=== PATIENT | female | born 1955 | race African-American/Black ===

== ENCOUNTER → 2020-04-24 | Outpatient (CLI) | payer MEDICARE, MEDICAID | END | disposition home or self-care (01) | LOC: MRI 13:41 | PROVIDERS: ATTEND Neurological Surgery | DX: M51.37 Other intervertebral disc degeneration, lumbosacral region (principal); M51.26 Other intervertebral disc displacement, lumbar region; M48.07 Spinal stenosis, lumbosacral region; M48.02 Spinal stenosis, cervical region | CPT/HCPCS: 72141; 72148 ==

== ENCOUNTER → 2020-11-19 | Outpatient (CLI) | payer MEDICARE | END | disposition home or self-care (01) | LOC: MRI 08:23 | PROVIDERS: ATTEND Neurological Surgery | DX: M47.816 Spondylosis without myelopathy or radiculopathy, lumbar region (principal); M48.061 Spinal stenosis, lumbar region without neurogenic claudication | CPT/HCPCS: 72148 ==

== ENCOUNTER → 2022-03-25 | Outpatient (CLI) | payer MEDICARE | END | disposition home or self-care (01) | LOC: US 09:13 | PROVIDERS: ATTEND Internal Medicine Nephrology | DX: N18.30 Chronic kidney disease, stage 3 unspecified (principal) | CPT/HCPCS: 76770 ==

== ENCOUNTER 2025-08-23 15:40 | Inpatient (IN) | payer MEDICARE, MEDICAID ==
[~2025-08-23] VITALS: Ht 157.5 cm; Wt 74.6 kg
[2025-08-23 15:45] VITALS: O2SAT 97
[2025-08-23 18:06] LABS: INR 1.2
[2025-08-23 18:25] LABS: CREATININE 1.6 mg/dL (0.6-1.0); UREA NITROGEN BLOOD 10 mg/dL (9-23)
[2025-08-23 18:27] LABS: ASPARTATE AMINOTRANSFERASE 18 IU/L (<34); BILIRUBIN DIRECT 0.1 mg/dL (<=3.0)
[2025-08-23 18:28] LABS: BILIRUBIN TOTAL 0.4 mg/dL (0.1-1.0); PROTEIN TOTAL 6.8 g/dL (6.0-8.3)
[2025-08-23 18:35] LABS: TROPONIN I HIGH SENSITIVITY 158 ng/L (3.0-34)
[2025-08-23 18:59] LABS: BASOPHILS % 0.8 % (0.0-2.0); EOSINOPHILS % 2.4 % (0.0-5.0); HEMATOCRIT. 34.5 % (36.0-48.0); HEMOGLOBIN. 11.7 g/dL (12.0-16.0); LYMPHOCYTES % 26.1 % (20.0-50.0); MEAN PLATELET VOLUME 9.6 fl (7.4-10.4); MONOCYTES % 8.2 % (2.0-8.0); NEUTROPHILS % 62.5 % (40.0-76.0); PLATELET 206 x1000/uL (130-400); RED BLOOD CELL COUNT 3.77 mill/uL (4.2-5.4); RED CELL DISTRIBUTION WIDTH 13.3 % (11.6-14.6)
[2025-08-23] MEDS: ASPIRIN 325MG EC TABLET PO ONE (19:19)
[2025-08-23] MEDS: CLOPIDOGREL 75MG TABLET PO ONE (19:19)
[2025-08-23] MEDS: LACTATED RINGERS 1,000 ML IV ONE (19:26)
[2025-08-23] MEDS ORDERED: GUAIFENESIN 200MG/10ML SUGAR FREE UDC PO PRN (20:15)
[2025-08-23] MEDS ORDERED: MAGNESIUM/ALUMINUM HYDROXIDE/SIMETHICONE 30ML UDC PO PRN (20:15)
[2025-08-23] MEDS ORDERED: DOCUSATE SODIUM 100MG CAPSULE PO PRN (20:15)
[2025-08-23] MEDS ORDERED: ACETAMINOPHEN 325MG TABLET PO PRN ×2 (20:15)
[2025-08-23] MEDS ORDERED: ONDANSETRON HCL 4MG/2ML INJ IV PRN (20:15)
[2025-08-23] MEDS ORDERED: IPRATROPIUM/ALBUTEROL 0.5-3(2.5)MG/3ML NEB HHN PRN (20:15)
[2025-08-23] MEDS ORDERED: DEXTROSE 50% WATER 50ML SYRINGE IV PRN (20:15)
[2025-08-23] MEDS ORDERED: CLONIDINE 0.1MG TABLET PO PRN (20:15)
[2025-08-23] MEDS ORDERED: RANOLAZINE 500 MG TAB.SR.12H PO SCH (21:00)
[2025-08-23] MEDS: MAGNESIUM 2 G PREMIX 50 ML IV SCH (21:00)
[2025-08-23] MEDS: BLOOD SUGAR DIAGNOSTIC STRIP TEST SCH (21:00)
[2025-08-23 23:10] VITALS: BP 141/85; PULSE 60; RESP 20; TEMP 36.1956; TEMP 36.2; O2SAT 100
[2025-08-23] MEDS: INSULIN LISPRO 100 UNITS/ML SUBCUT SCH (23:10)
[2025-08-24] MEDS: APIXABAN 5 MG TABLET PO SCH (00:28)
[2025-08-24] MEDS: MAGNESIUM 2 G PREMIX 50 ML IV NR (00:28)
[2025-08-24] MEDS: ATORVASTATIN CALCIUM 40MG TABLET PO SCH (00:28)
[2025-08-24] MEDS ORDERED: LOSA25TA26 PO (01:31)
[2025-08-24] MEDS ORDERED: ATOR-2 PO (01:31)
[2025-08-24] MEDS ORDERED: DILT240C96 PO (01:31)
[2025-08-24] MEDS ORDERED: PANT40TA51 PO (01:31)
[2025-08-24] MEDS ORDERED: APIX5TAB PO (01:31)
[2025-08-24] MEDS ORDERED: METF-414 PO (01:31)
[2025-08-24] MEDS ORDERED: METO-539 PO (01:31)
[2025-08-24] MEDS ORDERED: ANAS1TAB49 PO (01:31)
[2025-08-24] MEDS ORDERED: DOCU-422 MT (01:33)
[2025-08-24] MEDS ORDERED: TRAZ-251 PO (01:33)
[2025-08-24 04:00] VITALS: BP 110/64; PULSE 65; RESP 18; TEMP 36.3; O2SAT 98
[2025-08-24 04:44] LABS: CLARITY URINE CLEAR (CLEAR); COLOR URINE YELLOW (YELLOW); GLUCOSE URINE TRACE (NEGATIVE); KETONES URINE NEGATIVE (NEGATIVE); LEUKOCYTE ESTERASE URINE 1+ (NEGATIVE); NITRITE URINE NEGATIVE (NEGATIVE); OCCULT BLOOD URINE NEGATIVE (NEGATIVE); PH URINE 6.0 (4.5-8.0); PROTEIN URINE NEGATIVE (NEGATIVE); SPECIFIC GRAVITY URINE 1.012 (1.005-1.030); UROBILINOGEN URINE 0.2 E.U./dL (0.2-1.0)
[2025-08-24 04:58] LABS: PROTEIN URINE RANDOM 10.0 mg/dL
[2025-08-24 05:01] LABS: *AMPHETAMINES SCREEN URINE NEGATIVE (NEGATIVE); *BARBITURATES SCREEN URINE NEGATIVE (NEGATIVE); *BENZODIAZEPINES SCREEN URINE NEGATIVE (NEGATIVE); CREATININE URINE RANDOM 58.4 mg/dL
[2025-08-24 05:02] LABS: *COCAINE SCREEN URINE NEGATIVE (NEGATIVE); CANNABINOID URINE SCREEN NEGATIVE (NEGATIVE); ECSTASY MDMA SCREEN URINE NEGATIVE (NEGATIVE); METHADONE URINE SCREEN NEGATIVE (NEGATIVE); OPIATES URINE SCREEN NEGATIVE (NEGATIVE); PHENCYCLIDINE URINE SCREEN NEGATIVE (NEGATIVE); UREA NITROGEN URINE RANDOM 367.0 mg/dL
[2025-08-24 05:03] LABS: BACTERIA URINE TRACE; RBC URINE 0-2 /hpf (0-2); SQUAMOUS EPITHELIAL CELL URINE FEW /lpf (RARE/1+)
[2025-08-24 08:01] VITALS: BP 134/74; PULSE 66; RESP 20; TEMP 36.2; O2SAT 97
[2025-08-24 08:46] LABS: BASOPHILS % 0.5 % (0.0-2.0); EOSINOPHILS % 3.8 % (0.0-5.0); HEMATOCRIT. 35.1 % (36.0-48.0); HEMOGLOBIN. 11.7 g/dL (12.0-16.0); LYMPHOCYTES % 40.4 % (20.0-50.0); MEAN PLATELET VOLUME 9.6 fl (7.4-10.4); MONOCYTES % 6.3 % (2.0-8.0); NEUTROPHILS % 49.0 % (40.0-76.0); PLATELET 196 x1000/uL (130-400); RED BLOOD CELL COUNT 3.81 mill/uL (4.2-5.4); RED CELL DISTRIBUTION WIDTH 13.3 % (11.6-14.6)
[2025-08-24 08:59] LABS: CREATININE 1.3 mg/dL (0.6-1.0); TRIGLYCERIDE 59 mg/dL (0-150)
[2025-08-24 09:00] LABS: LDL CHOLESTEROL 64 mg/dL (5-100); UREA NITROGEN BLOOD 10 mg/dL (9-23)
[2025-08-24] MEDS ORDERED: LOSARTAN 50 MG TABLET PO SCH (09:00)
[2025-08-24 09:03] LABS: T4 FREE 1.17 ng/dL (0.89-1.76)
[2025-08-24 09:07] LABS: ASPARTATE AMINOTRANSFERASE 18 IU/L (<34)
[2025-08-24 09:08] LABS: BILIRUBIN DIRECT 0.1 mg/dL (<=3.0); BILIRUBIN TOTAL 0.5 mg/dL (0.1-1.0); PROTEIN TOTAL 6.5 g/dL (6.0-8.3)
[2025-08-24 09:10] LABS: FOLIC ACID (FOLATE) SERUM > 20.00 ng/mL (>5.38); VITAMIN B12 SERUM 410 pg/mL (211-911)
[2025-08-24 09:27] LABS: TROPONIN I HIGH SENSITIVITY 168 ng/L (3.0-34)
[2025-08-24 09:30] LABS: TROPONIN I HIGH SENSITIVITY 165 ng/L (3.0-34)
[2025-08-24] MEDS: PANTOPRAZOLE 40MG DR TABLET PO SCH (09:46)
[2025-08-24] MEDS: LOSARTAN 25 MG TABLET PO SCH (09:46)
[2025-08-24] MEDS: ANASTROZOLE 1 MG TABLET PO SCH (09:46)
[2025-08-24] MEDS: ASPIRIN 81MG EC TABLET PO SCH (09:46)
[2025-08-24] MEDS: METOPROLOL TARTRATE 50MG TABLET PO SCH (09:46)
[2025-08-24 11:56] VITALS: BP 120/77; PULSE 66; RESP 18; TEMP 36.2; O2SAT 100
[2025-08-24 16:12] VITALS: BP 109/61; PULSE 64; RESP 18; TEMP 36.2; O2SAT 99
[2025-08-24] MEDS ORDERED: TRAZODONE HCL 50MG TABLET PO SCH (21:00)
== END 2025-08-24 18:45 | disposition left against medical advice (07) | DRG 281 ==
LOC: ER 15:40 → EDBEDREQ 18:55 → EDBEDREQSVC 18:55 → EDBEDREQTM 18:55 → EDBEDREQSVC 22:25 → ENRESERV 22:43 → 7WST 23:12
PROVIDERS: ADMIT Hospitalist; ATTEND Hospitalist
DX: I21.4 Non-ST elevation (NSTEMI) myocardial infarction (principal); N17.9 Acute kidney failure, unspecified; E11.9 Type 2 diabetes mellitus without complications; D64.9 Anemia, unspecified; E83.42 Hypomagnesemia; I44.7 Left bundle-branch block, unspecified; I44.0 Atrioventricular block, first degree; I10 Essential (primary) hypertension; I48.0 Paroxysmal atrial fibrillation; Z53.29 Procedure and treatment not carried out because of patient's decision for other reasons; I25.10 Atherosclerotic heart disease of native coronary artery without angina pectoris; Z95.0 Presence of cardiac pacemaker; Z85.3 Personal history of malignant neoplasm of breast; Z79.811 Long term (current) use of aromatase inhibitors; Z79.01 Long term (current) use of anticoagulants; Z79.82 Long term (current) use of aspirin; Z92.21 Personal history of antineoplastic chemotherapy
CPT/HCPCS: 36415; 71045; 80048; 80061; 80076; 80305; 81003; 82550; 82570; 82607; 82728; 82746; 82962; 83036; 83540; 83550; 83735; 83880; 84156; 84439; 84443; 84484; 84540; 85025; 93005; 93970; 97162; 99285; A4606; J3475; J7120